=== PATIENT | male | born 1955 | race African-American/Black ===

== ENCOUNTER 2017-10-05 17:26 | Inpatient (IN) | payer OTHER ==
[2017-10-05 17:54] VITALS: BMI 19.3
--- NOTE | 2017-10-05 18:03 | HP ---
CIWA Score - CIWA Score Nausea/Vomitin Muscle Tremors: 3 Anxiety: 3 Agitation: 3 Paroxysmal Sweats: 2 Orientation: 0-Oriented Tacttile Disturbances: 2-Mild Itch/Numbness/Burn Auditory Disturbances: 2-Mild Harshness/Frighten Visual Disturbances: 0-None Headache: 2-Mild CIWA-Ar Total Score: 20 Admission ROS BHS - HPI Chief Complaint: I NEED HELP TO STOP DRINKING ALCOHOL AND COCAINE Allergies/Adverse Reactions: Allergies Allergy/AdvReac Type Severity Reaction Status Date / Time Fish Containing Products Allergy Severe Swelling Verified 10/05/17 18:40 morphine Allergy Severe Hives Verified 10/05/17 18:40 shellfish derived Allergy Severe Swelling Verified 10/05/17 18:40 SEAFOOD Allergy Severe Swelling Uncoded 10/05/17 18:40 History of Present Illness: THIS 62 YEARS OLD BLACK MALE PATIENT WITH ALCOHOL AND COCAINE DEPENDENCE, SEEKING DETOX,WITHDRAWAL SYMPTOM,LAST TREATMENT 03/19/16 TO 04/09/16 HAD CHEST PAIN SEEN AT [facility] TO COME FOR DETOX SYNCOPE ALCOHOL RELATED LAST 1 WEEK AGO IDDM ON LANTUS 25 UNITS HS HEPATITIS C WEIGHT LOSS 15 LBS DEPRESSION LONGEST PERIOD OF SOBRIETY Exam Limitations: No Limitations - Ebola screening Have you been sick,other than usual withdrawal symptoms: No - Review of Systems Constitutional: Loss of Appetite, Malaise, Night Sweats, Changes in sleep, Weakness, Unintentional Wgt. Loss EENT: reports: Tearing, Nose Congestion Respiratory: reports: Other (ON ALBUTEROL INHALER) Cardiac: reports: No Symptoms Reported GI: reports: Diarrhea, Nausea, Vomiting, Abdominal cramping : reports: No Symptoms Reported Musculoskeletal: reports: Back Pain, Muscle Pain Integumentary: reports: Dryness Neuro: reports: Headache, Tremors Endocrine: reports: No Symptoms Reported Hematology: reports: No Symptoms Reported Psychiatric: reports: No Sypmtoms Reported, Judgement Intact, Mood/Affect Appropiate, Orientated x3, Depressed (INSOMNIA) Patient History - Patient Medical History Hx Anemia: No Hx Asthma: Yes (ON ALBUTERIL INHALER) Hx Chronic Obstructive Pulmonary Disease (COPD): No Hx Cancer: No Hx Cardiac Disorders: No Hx Hypertension: No Hx Hypercholesterolemia: No HX Cerebrovascular Accident: No Hx Seizures: No Hx Dementia: No Hx Diabetes: Yes (IDDM) Hx Gastrointestinal Disorders: No Hx Liver Disease: Yes (HEP C) Hx Genitourinary Disorders: No Hx Sexually Transmitted Disorders: No Hx Renal Disease (ESRD): No Hx Thyroid Disease: No Hx Human Immunodeficiency Virus (HIV): No (NEGATIVE HX LAST UNKNOWN) Hx Hepatitis C: Yes (NOT YET TREATED) Hx Depression: Yes (depression 10 years ago) Hx Suicide Attempt: No Hx Bipolar Disorder: No Hx Schizophrenia: No Other Medical History: NO SUICIDAL,NO HOMICIDAL - Patient Surgical History Past Surgical History: No Hx Neurologic Surgery: No Hx Cataract Extraction: No Hx Cardiac Surgery: No Hx Lung Surgery: No Hx Breast Surgery: No Hx Breast Biopsy: No Hx Abdominal Surgery: No Hx Appendectomy: No Hx Cholecystectomy: No Hx Genitourinary Surgery: No Hx Section: No Hx Orthopedic Surgery: No Anesthesia Reaction: No - PPD History Documented Results: Negative w/o proof Implanted On Prior [facility] Admission?: Yes Date: 03/21/16 Results: TO BE DONE PPD to be Administered?: Yes - Smoking Cessation Smoking history: Current every day smoker Have you smoked in the past 12 months: Yes Aproximately how many cigarettes per day: 10 Hx Chewing Tobacco Use: No Initiated information on smoking cessation: Yes 'Breaking Loose' booklet given: 10/05/17 - Substance & Tx. History Hx Alcohol Use: Yes Hx Substance Use: Yes Substance Use Type: Alcohol, Cocaine Hx Substance Use Treatment: Yes ([facility]/19[facility]16 TO 04/08/16 REHAB) - Substances Abused Alcohol Route: Oral Frequency: Daily Amount used: 1PINT OF VODKA/6 PACKS OF 12 OZS OF BEER Age of first use: 19 Date of Last Use: 10/04/17 Cocaine Route: Smoking Frequency: 1-2 times per week Amount used: 400$ Age of first use: 27 Date of Last Use: 10/03/17 Family Disease History - Family Disease History Family Disease History: Diabetes: Father (), Mother (HTN-ALIVE), Heart Disease: Mother, Other: Mother Admission Physical Exam S - Vital Signs Vital Signs: Vital Signs - 24 hr 10/05/17 17:43 Temperature 96.8 F L Pulse Rate 74 Respiratory 18 Rate Blood Pressure 137/90 - Physical General Appearance: Yes: Moderate Distress, Tremorous, Irritable, Sweating, Anxious HEENTM: Yes: EDMAR, Pharynx Normal Respiratory: Yes: Lungs Clear, Normal Breath Sounds, No Respiratory Distress Neck: Yes: Within Normal Limits, Supple, Trachea in good position Breast: Yes: Within Normal Limits Cardiology: Yes: Within Normal Limits, Regular Rhythm, Regular Rate, S1, S2 Abdominal: Yes: Within Normal Limits, Normal Bowel Sounds, Non Tender, Flat, Soft Genitourinary: Yes: Within Normal Limits Back: Yes: Muscle Spasm, Other (HERNIATED DISC FOR 20 YEARS) Musculoskeletal: Yes: full range of Motion, Back pain, Muscle Pain Extremities: Yes: Within Normal Limits, Normal Range of Motion, Tremors Neurological: Yes: loan manager II-XII NML intact, Alert, Motor Strength 5/5, Normal Mood /Affect Integumentary: Yes: Dry Lymphatic: Yes: Within Normal Limits - Diagnostic (1) Alcohol dependence with uncomplicated withdrawal Current Visit: No Status: Chronic (2) Asthma Current Visit: No Status: Acute (3) Nicotine dependence Current Visit: No Status: Acute (4) Cocaine dependence, uncomplicated Current Visit: No Status: Chronic (5) Eczema Current Visit: No Status: Chronic Qualifiers: Eczema type: flexural Qualified Code(s): L20.82 - Flexural eczema (6) Weight loss Current Visit: Yes Status: Acute (7) IDDM (insulin dependent diabetes mellitus) Current Visit: Yes Status: Acute (8) History of chest pain Current Visit: Yes Status: Acute (9) Low back pain Current Visit: Yes Status: Acute Qualifiers: Chronicity: chronic (10) Lumbar herniated disc Current Visit: Yes Status: Acute Cleared for Admission [facility] - Detox or Rehab [facility] Level of Care: Medically Managed Detox Regimen/Protocol: Librium [facility] Breath Alcohol Content Breath Alcohol Content: 0 Urine Drug Screen - Results Drug Screen Negative: No Urine Drug Screen Results: PETE-Cocaine, BZO-Benzodiazepines, TCA-Tricyclic Antidepress
[2017-10-05] MEDS ORDERED: chlordiazePOXIDE HCL 25 MG CAPSULE PO PRN (18:23)
[2017-10-05] MEDS ORDERED: ACETAMINOPHEN 325 MG TABLET (FP) PO PRN (18:23)
[2017-10-05] MEDS ORDERED: MENTHOL/PHENOL 1 EACH UD MM PRN (18:23)
[2017-10-05] MEDS ORDERED: IBUPROFEN 400 MG TABLET (FP) PO PRN (18:23)
[2017-10-05] MEDS ORDERED: MAGNESIUM HYDROX 2400MG/30ML ORAL SUSPENSION 30 ML CUP PO PRN (18:23)
[2017-10-05] MEDS ORDERED: guaiFENesin/D-METHORPHAN HB 10 ML UNIT-DOSE CUPS PO PRN (18:23)
[2017-10-05] MEDS ORDERED: MAGNESIUM CITRATE 300 ML BOTTLE PO PRN (18:23)
[2017-10-05] MEDS ORDERED: hydrOXYzine PAMOATE 25 MG CAPSULE (FP) PO PRN (18:23)
[2017-10-05] MEDS ORDERED: MAG HYDROX/AL HYDROX/SIMETH 30 ML UNIT-DOSE CUP PO PRN (18:23)
[2017-10-05] MEDS ORDERED: P-EPHED 60MG/TRIPROLIDI 2.5MG TABLET PO PRN (18:23)
[2017-10-05] MEDS ORDERED: LOPERAMIDE HCL 2 MG CAPSULE PO PRN (18:23)
[2017-10-05] MEDS ORDERED: ALBUTEROL SO4 18 GM HFA INHALER IH PRN (18:27)
[2017-10-05] MEDS ORDERED: chlordiazePOXIDE HCL 25 MG CAPSULE PO ONE (19:00)
[2017-10-05] MEDS: THIAMINE HCL 100 MG TABLET (FP) PO SCH (22:29)
[2017-10-05] MEDS: MELATONIN 5 MG TABLETS PO PRN (22:29)
[2017-10-05] MEDS: INSULIN DETEMIR 100 UNITS/ML MDV SQ SCH (22:30)
[2017-10-05] MEDS: CYCLOBENZAPRINE HCL 10 MG TABLET (FP) PO PRN (22:30)
[2017-10-05] MEDS: chlordiazePOXIDE HCL 25 MG CAPSULE PO SCH (22:30)
[2017-10-06] MEDS: chlordiazePOXIDE HCL 25 MG CAPSULE PO SCH ×6 (06:44→22:16)
--- NOTE | 2017-10-06 07:32 | CONSULT ---
[facility] Psychiatric Consult - Data Date of interview: 10/06/17 Admission source: [facility] Identifying data: This is 62 years old AA single male, father of one, on SSI , homeless, with history of Bipolar disorder, history of psychiatric hospitalizations, is here seeking for detox from Alcohol, Cocaine and Nicotine. Repoprts most brecent Detox on 03/19/16 TO 04/09/16 Substance Abuse History: Urine Drug Screen Results: PETE-Cocaine, BZO- Benzodiazepines, TCA-Tricyclic Antidepress. Smoking history: Current every day smoker. Have you smoked in the past 12 months: Yes. Aproximately how many cigarettes per day: 10. Hx Chewing Tobacco Use: No. Initiated information on smoking cessation: Yes. 'Breaking Loose' booklet given: 10/05/17. - Substance & Tx. History. Hx Alcohol Use: Yes. Hx Substance Use: Yes. Substance Use Type : Alcohol, Cocaine. Hx Substance Use Treatment: Yes ([facility]16 TO 04/08/16 REHAB). - Substances Abused. Alcohol. Route: Oral. Frequency: Daily. Amount used: 1PINT OF VODKA/6 PACKS OF 12 OZS OF BEER. Age of first use: 19. Date of Last Use: 10/04/17. Cocaine. Route: Smoking. Frequency: 1-2 times per week. Amount used: 400$. Age of first use: 27. Date of Last Use: 10/03/17 Medical History: Patient rep[orts history of Weight loss, chest pain, DM-1, LBP , Eczema, Syncope history as well Psychiatric History: Patoent reports history of Depression and Bipolar Disorder , reports last psychiartric admission on about mopre then 10 years ago, reports no psychiatric medications taking since then, denies suicidal, homicidal history. Physical/Sexual Abuse/Trauma History: Denies Additional Comment: Urine Drug Screen Results: PETE-Cocaine, BZO-Benzodiazepines , TCA-Tricyclic Antidepress Mental Status Exam - Mental Status Exam Alert and Oriented to: Person Cognitive Function: Fair Patient Appearance: Unkempt Mood: Anxious Affect: Flat Patient Behavior: Guarded Speech Pattern: Appropriate Voice Loudness: Moderately Soft/Quiet Thought Process: Circumstantial Thought Disorder: Being Controlled Hallucinations: Denies Suicidal Ideation: Denies Homicidal Ideation: Denies Insight/Judgement: Fair Sleep: Difficulty falling asleep Appetite: Weight loss Muscle strength/Tone: Mild Hypotonicity Gait/Station: Shuffling Additional Comments: Detox Unit Care Protocol. Observation Psychiatric Findings - Problem List ([place] 1, 2,3) (1) Nicotine dependence Current Visit: Yes Status: Acute (2) Bipolar disorder Current Visit: Yes Status: Suspected (3) Substance induced mood disorder Current Visit: No Status: Chronic (4) Alcohol dependence with uncomplicated withdrawal Current Visit: No Status: Chronic (5) Cocaine dependence, uncomplicated Current Visit: No Status: Chronic - Initial Treatment Plan Initial Treatment Plan: Detox Unit Care Protocol. Observation
[2017-10-06 09:57] LABS: HEMATOCRIT 39.7 % (35.4-49); MCH 28.9 pg (25.7-33.7); MCHC 32.7 g/dl (32.0-35.9); MEAN CELL VOLUME 88.2 fl (80-96); MEAN PLT VOLUME 8.7 fl (7.5-11.1); PLATELET COUNT 211 K/MM3 (134-434); RBC 4.51 M/mm3 (4.00-5.60); RDW 14.1 % (11.9-15.9); WHITE BLOOD COUNT 3.3 K/mm3 (4.0-10.0)
[2017-10-06 10:31] LABS: CHLORIDE 108 mmol/L (98-107); SODIUM 142 mmol/L (136-145)
[2017-10-06 10:40] LABS: ALBUMIN 3.3 g/dl (3.4-5.0); ALK PHOS 92 U/L (45-117); ANION GAP 5 (8-16); BILIRUBIN,TOTAL 0.2 mg/dL (0.2-1.0); BLOOD UREA NITROGEN 20 mg/dL (7-18); CALCIUM 8.6 mg/dL (8.5-10.1); CO2 29 mmol/L (21-32); CREATININE 0.8 mg/dL (0.7-1.3); GLUCOSE,RANDOM 77 mg/dL (74-106); SGOT/AST 88 U/L (15-37); SGPT/ALT 74 U/L (12-78); TOT PROT 6.3 g/dl (6.4-8.2)
--- NOTE | 2017-10-06 10:48 | PN ---
[facility] CIWA - CIWA Score Nausea/Vomitin-Mild Nausea/No Vomiting Muscle Tremors: 4-Moderate,w/Arms Extend Anxiety: 4-Mod. Anxious/Guarded Agitation: 4-Moderately Restless Paroxysmal Sweats: 1-Minimal Palms Moist Orientation: 1-Uncertain about Date Tacttile Disturbances: 0-None Auditory Disturbances: 0-None Visual Disturbances: 0-None Headache: 1-Very Mild CIWA-Ar Total Score: 16 BHS Progress Note (SOAP) Subjective: sweat tremor difficulty sleeping at night, restlessness anxiety irritable Objective: 10/06/17 10:47 Vital Signs Temperature 96.8 F L 10/06/17 09:07 Pulse Rate 65 10/06/17 09:07 Respiratory Rate 20 10/06/17 09:07 Blood Pressure 127/64 10/06/17 09:07 O2 Sat by Pulse Oximetry (%) Laboratory Last Values WBC 3.3 K/mm3 (4.0-10.0) L 10/06/17 07:45 RBC 4.51 M/mm3 (4.00-5.60) 10/06/17 07:45 Hgb 13.0 GM/dL (11.7-16.9) 10/06/17 07:45 Hct 39.7 % (35.4-49) 10/06/17 07:45 MCV 88.2 fl (80-96) 10/06/17 07:45 MCH 28.9 pg (25.7-33.7) 10/06/17 07:45 MCHC 32.7 g/dl (32.0-35.9) 10/06/17 07:45 RDW 14.1 % (11.9-15.9) 10/06/17 07:45 Plt Count 211 K/MM3 (134-434) 10/06/17 07:45 MPV 8.7 fl (7.5-11.1) 10/06/17 07:45 Sodium 142 mmol/L (136-145) 10/06/17 07:45 Potassium 4.0 mmol/L (3.5-5.1) 10/06/17 07:45 Chloride 108 mmol/L (98-107) H 10/06/17 07:45 POC Glucometer 83 UNITS (80-120) 10/06/17 07:17 lab noted Assessment: 10/06/17 10:47 withdrawal sx Plan: continue detox
[2017-10-06] MEDS: LIDOCAINE 5% TOPICAL PATCH TP SCH (11:02)
[2017-10-06] MEDS: PRENATAL VITAMINS W/ FOLIC ACID TABLET (FP) PO SCH (11:02)
--- NOTE | 2017-10-06 11:28 | EKG ---
Test Reason : Blood Pressure : / mmHG Vent. Rate : 064 BPM Atrial Rate : 064 BPM P-R Int : 144 ms QRS Dur : 076 ms QT Int : 428 ms P-R-T Axes : 064 079 067 degrees QTc Int : 441 ms NORMAL SINUS RHYTHM NORMAL ECG NO PREVIOUS ECGS AVAILABLE Confirmed by MARIJA HEBERT MD ([id number]) on 10/06/2017 11:28:01 AM Referred By: Diego Guillermo Confirmed By:MARIJA HEBERT MD
[2017-10-06] MEDS: INSULIN DETEMIR 100 UNITS/ML MDV SQ SCH (21:39)
[2017-10-06] MEDS: CYCLOBENZAPRINE HCL 10 MG TABLET (FP) PO PRN (22:16)
[2017-10-06] MEDS: THIAMINE HCL 100 MG TABLET (FP) PO SCH (22:16)
[2017-10-06] MEDS: LIDOCAINE PATCH REMOVAL MC SCH ×2 (22:16)
[2017-10-06] MEDS: MELATONIN 5 MG TABLETS PO PRN (22:16)
[2017-10-07] MEDS: chlordiazePOXIDE HCL 25 MG CAPSULE PO SCH ×3 (06:13→18:03)
[2017-10-07] MEDS: PRENATAL VITAMINS W/ FOLIC ACID TABLET (FP) PO SCH (11:15)
[2017-10-07] MEDS: LIDOCAINE 5% TOPICAL PATCH TP SCH (11:15)
--- NOTE | 2017-10-07 13:08 | PN ---
S CIWA - CIWA Score Nausea/Vomitin Muscle Tremors: 3 Anxiety: 3 Agitation: 3 Paroxysmal Sweats: 1-Minimal Palms Moist Orientation: 0-Oriented Tacttile Disturbances: 1-Very Mild Itch/Numbness Auditory Disturbances: 1-Very Mild Visual Disturbances: 0-None Headache: 2-Mild CIWA-Ar Total Score: 17 BHS Progress Note (SOAP) Subjective: ALERT,IRRITABLE,ANXIOUS,INTERRUPTED SLEEP,TREMOR,PAIN IN THE BODY Objective: 10/07/17 13:07 Vital Signs Temperature 97.3 F L 10/07/17 10:00 Pulse Rate 68 10/07/17 10:00 Respiratory Rate 18 10/07/17 10:00 Blood Pressure 133/78 10/07/17 10:00 O2 Sat by Pulse Oximetry (%) Laboratory Last Values WBC 3.3 K/mm3 (4.0-10.0) L 10/06/17 07:45 RBC 4.51 M/mm3 (4.00-5.60) 10/06/17 07:45 Hgb 13.0 GM/dL (11.7-16.9) 10/06/17 07:45 Hct 39.7 % (35.4-49) 10/06/17 07:45 MCV 88.2 fl (80-96) 10/06/17 07:45 MCH 28.9 pg (25.7-33.7) 10/06/17 07:45 MCHC 32.7 g/dl (32.0-35.9) 10/06/17 07:45 RDW 14.1 % (11.9-15.9) 10/06/17 07:45 Plt Count 211 K/MM3 (134-434) 10/06/17 07:45 MPV 8.7 fl (7.5-11.1) 10/06/17 07:45 Sodium 142 mmol/L (136-145) 10/06/17 07:45 Potassium 4.0 mmol/L (3.5-5.1) 10/06/17 07:45 Chloride 108 mmol/L (98-107) H 10/06/17 07:45 Carbon Dioxide 29 mmol/L (21-32) 10/06/17 07:45 Anion Gap 5 (8-16) L 10/06/17 07:45 BUN 20 mg/dL (7-18) H D 10/06/17 07:45 Creatinine 0.8 mg/dL (0.7-1.3) D 10/06/17 07:45 Creat Clearance w eGFR > 60 (>60) 10/06/17 07:45 POC Glucometer 71 UNITS (80-120) 10/07/17 06:34 Random Glucose 77 mg/dL (74-106) D 10/06/17 07:45 Calcium 8.6 mg/dL (8.5-10.1) 10/06/17 07:45 Total Bilirubin 0.2 mg/dL (0.2-1.0) D 10/06/17 07:45 AST 88 U/L (15-37) H D 10/06/17 07:45 ALT 74 U/L (12-78) D 10/06/17 07:45 Alkaline Phosphatase 92 U/L (45-117) 10/06/17 07:45 Total Protein 6.3 g/dl (6.4-8.2) L 10/06/17 07:45 Albumin 3.3 g/dl (3.4-5.0) L 10/06/17 07:45 RPR Titer Nonreactive (NONREACTIVE) 10/06/17 07:45 Assessment: 10/07/17 13:08 WITHDRAWAL SYMPTOM Plan: CONTINUE DETOX
[2017-10-07] MEDS ORDERED: PATIENT'S OWN MEDICATION (NON-FORMULARY) (Insulin Glargine,Hum.Rec.Anlog 25 UNITS) SCJ SCH (22:00)
[2017-10-07] MEDS: chlordiazePOXIDE 5 MG CAPSULE PO SCH (22:07)
[2017-10-07] MEDS: THIAMINE HCL 100 MG TABLET (FP) PO SCH (22:07)
[2017-10-07] MEDS: LIDOCAINE PATCH REMOVAL MC SCH (22:08)
[2017-10-07] MEDS: INSULIN DETEMIR 100 UNITS/ML MDV SQ SCH (22:10)
[2017-10-08] MEDS: chlordiazePOXIDE 5 MG CAPSULE PO SCH ×3 (07:01→17:10)
[2017-10-08 10:03] LABS: URINE APPEARANCE CLEAR; URINE BILIRUBIN NEGATIVE (<2.0 mg/dL); URINE BLOOD NEGATIVE (NEGATIVE); URINE COLOR LTYELLOW; URINE GLUCOSE (UA) 3+ (NEGATIVE); URINE KETONE NEGATIVE (NEGATIVE); URINE LEUK ESTERASE NEGATIVE (NEGATIVE); URINE NITRITE NEGATIVE (NEGATIVE); URINE PROTEIN NEGATIVE (NEGATIVE); URINE UROBILINOGEN NEGATIVE mg/dL (0.2-1.0)
[2017-10-08] MEDS: PRENATAL VITAMINS W/ FOLIC ACID TABLET (FP) PO SCH (10:45)
[2017-10-08] MEDS: LIDOCAINE 5% TOPICAL PATCH TP SCH (10:45)
--- NOTE | 2017-10-08 12:16 | PN ---
S Progress Note (SOAP) Subjective: feeling better well rested no tremor tolerated food well and fluid well social with peers Objective: 10/08/17 12:16 Vital Signs Temperature 97.3 F L 10/08/17 09:35 Pulse Rate 67 10/08/17 09:35 Respiratory Rate 18 10/08/17 09:35 Blood Pressure 119/70 10/08/17 09:35 O2 Sat by Pulse Oximetry (%) Laboratory Last Values WBC 3.3 K/mm3 (4.0-10.0) L 10/06/17 07:45 RBC 4.51 M/mm3 (4.00-5.60) 10/06/17 07:45 Hgb 13.0 GM/dL (11.7-16.9) 10/06/17 07:45 Hct 39.7 % (35.4-49) 10/06/17 07:45 MCV 88.2 fl (80-96) 10/06/17 07:45 MCH 28.9 pg (25.7-33.7) 10/06/17 07:45 MCHC 32.7 g/dl (32.0-35.9) 10/06/17 07:45 RDW 14.1 % (11.9-15.9) 10/06/17 07:45 Plt Count 211 K/MM3 (134-434) 10/06/17 07:45 MPV 8.7 fl (7.5-11.1) 10/06/17 07:45 Sodium 142 mmol/L (136-145) 10/06/17 07:45 Potassium 4.0 mmol/L (3.5-5.1) 10/06/17 07:45 Chloride 108 mmol/L (98-107) H 10/06/17 07:45 Carbon Dioxide 29 mmol/L (21-32) 10/06/17 07:45 Anion Gap 5 (8-16) L 10/06/17 07:45 BUN 20 mg/dL (7-18) H D 10/06/17 07:45 Creatinine 0.8 mg/dL (0.7-1.3) D 10/06/17 07:45 Creat Clearance w eGFR > 60 (>60) 10/06/17 07:45 POC Glucometer 162 UNITS (80-120) 10/08/17 06:20 Random Glucose 77 mg/dL (74-106) D 10/06/17 07:45 Calcium 8.6 mg/dL (8.5-10.1) 10/06/17 07:45 Total Bilirubin 0.2 mg/dL (0.2-1.0) D 10/06/17 07:45 AST 88 U/L (15-37) H D 10/06/17 07:45 ALT 74 U/L (12-78) D 10/06/17 07:45 Alkaline Phosphatase 92 U/L (45-117) 10/06/17 07:45 Total Protein 6.3 g/dl (6.4-8.2) L 10/06/17 07:45 Albumin 3.3 g/dl (3.4-5.0) L 10/06/17 07:45 Urine Color Ltyellow 10/08/17 08:30 Urine Appearance Clear 10/08/17 08:30 Urine pH 6.0 (5.0-8.0) 10/08/17 08:30 Ur Specific [place] 1.013 (1.001-1.035) 10/08/17 08:30 Urine Protein Negative (NEGATIVE) 10/08/17 08:30 Urine Glucose (UA) 3+ (NEGATIVE) H 10/08/17 08:30 Urine Ketones Negative (NEGATIVE) 10/08/17 08:30 Urine Blood Negative (NEGATIVE) 10/08/17 08:30 Urine Nitrite Negative (NEGATIVE) 10/08/17 08:30 Urine Bilirubin Negative (<2.0 mg/dL) 10/08/17 08:30 Urine Urobilinogen Negative mg/dL (0.2-1.0) 10/08/17 08:30 Ur Leukocyte Esterase Negative (NEGATIVE) 10/08/17 08:30 RPR Titer Nonreactive (NONREACTIVE) 10/06/17 07:45 lab noted Assessment: 10/08/17 12:1 10/08/17 12:18 mild withdrawal sx Plan: medically supervised detox
[2017-10-08] MEDS ORDERED: INSULIN (NOVOLOG) ASPART 100 UNITS/ML 10ML VIAL ONE (17:07)
[2017-10-08] MEDS ORDERED: INSULIN SLIDING SCALE (NOVOLOG) 1 VIAL SQ SCH (17:27)
[2017-10-08] MEDS: INSULIN SLIDING SCALE (NOVOLOG) 1 VIAL SQ SCH (18:06)
[2017-10-08] MEDS ORDERED: COLLOIDAL OATMEAL 1 BAR EACH TP PRN (20:17)
[2017-10-08] MEDS: chlordiazePOXIDE HCL 10 MG CAPSULE PO SCH (23:00)
[2017-10-08] MEDS: LIDOCAINE PATCH REMOVAL MC SCH (23:00)
[2017-10-08] MEDS: INSULIN DETEMIR 100 UNITS/ML MDV SQ SCH (23:00)
[2017-10-08] MEDS: THIAMINE HCL 100 MG TABLET (FP) PO SCH (23:00)
[2017-10-09 06:20] VITALS: BP 119/78; PULSE 67; TEMP 97.9
[2017-10-09] MEDS: chlordiazePOXIDE HCL 10 MG CAPSULE PO SCH (06:47)
[2017-10-09] MEDS ORDERED: INSULIN SLIDING SCALE (NOVOLOG) 1 VIAL SQ SCH ×2 (07:00)
[2017-10-09] MEDS ORDERED: INSULIN (NOVOLOG) ASPART 100 UNITS/ML 10ML VIAL ONE (07:47)
[2017-10-09] MEDS: INSULIN SLIDING SCALE (NOVOLOG) 1 VIAL SQ SCH (07:54)
--- NOTE | 2017-10-09 08:32 | DS ---
[facility] Detox Discharge Summary Admission Date: 10/05/17 Discharge Date: 10/09/17 - History Present History: Alcohol Dependence, Cocaine Dependence Additional Comments: [facility]erry [facility] by [facility] for rehab at 10AM today Pertinent Past History: anxiety, depression and insomnia, nicotien dependence - Physical Exam Results Vital Signs: Vital Signs Temperature 97.9 F 10/09/17 06:19 Pulse Rate 67 10/09/17 06:19 Respiratory Rate 16 10/09/17 06:19 Blood Pressure 119/78 10/09/17 06:19 O2 Sat by Pulse Oximetry (%) Laboratory Tests 10/06/17 10/06/17 10/06/17 07:17 07:45 07:45 WBC 3.3 L RBC 4.51 Hgb 13.0 Hct 39.7 MCV 88.2 MCH 28.9 MCHC 32.7 RDW 14.1 Plt Count 211 MPV 8.7 Sodium 142 Potassium 4.0 Chloride 108 H Carbon Dioxide 29 Anion Gap 5 L BUN 20 H D Creatinine 0.8 D Creat Clearance w eGFR > 60 POC Glucometer 83 Random Glucose 77 D Calcium 8.6 Total Bilirubin 0.2 D AST 88 H D ALT 74 D Alkaline Phosphatase 92 Total Protein 6.3 L Albumin 3.3 L Urine Color Urine Appearance Urine pH Ur Specific [place] Urine Protein Urine Glucose (UA) Urine Ketones Urine Blood Urine Nitrite Urine Bilirubin Urine Urobilinogen Ur Leukocyte Esterase RPR Titer 10/06/17 10/06/17 10/07/17 07:45 21:37 06:34 WBC RBC Hgb Hct MCV MCH MCHC RDW Plt Count MPV Sodium Potassium Chloride Carbon Dioxide Anion Gap BUN Creatinine Creat Clearance w eGFR POC Glucometer 226 71 Random Glucose Calcium Total Bilirubin AST ALT Alkaline Phosphatase Total Protein Albumin Urine Color Urine Appearance Urine pH Ur Specific [place] Urine Protein Urine Glucose (UA) Urine Ketones Urine Blood Urine Nitrite Urine Bilirubin Urine Urobilinogen Ur Leukocyte Esterase RPR Titer Nonreactive 10/07/17 10/08/17 10/08/17 16:41 06:20 08:30 WBC RBC Hgb Hct MCV MCH MCHC RDW Plt Count MPV Sodium Potassium Chloride Carbon Dioxide Anion Gap BUN Creatinine Creat Clearance w eGFR POC Glucometer 264 162 Random Glucose Calcium Total Bilirubin AST ALT Alkaline Phosphatase Total Protein Albumin Urine Color Ltyellow Urine Appearance Clear Urine pH 6.0 Ur Specific [place] 1.013 Urine Protein Negative Urine Glucose (UA) 3+ H Urine Ketones Negative Urine Blood Negative Urine Nitrite Negative Urine Bilirubin Negative Urine Urobilinogen Negative Ur Leukocyte Esterase Negative RPR Titer 10/08/17 10/09/17 16:35 07:39 WBC RBC Hgb Hct MCV MCH MCHC RDW Plt Count MPV Sodium Potassium Chloride Carbon Dioxide Anion Gap BUN Creatinine Creat Clearance w eGFR POC Glucometer 394 202 Random Glucose Calcium Total Bilirubin AST ALT Alkaline Phosphatase Total Protein Albumin Urine Color Urine Appearance Urine pH Ur Specific [place] Urine Protein Urine Glucose (UA) Urine Ketones Urine Blood Urine Nitrite Urine Bilirubin Urine Urobilinogen Ur Leukocyte Esterase RPR Titer Pertinent Admission Physical Exam Findings: withdrawal sx - Treatment Hospital Course: Detox Protocol Followed, Detoxed Safely, Responded well, Discharged Condition Good, Rehab Referral Accepted Patient has Accepted a Rehab Referral to: Yes - Medication Discharge Medications: Ambulatory Orders Albuterol Sulfate Inhaler - [Ventolin HFA Inhaler -] 2 inh PO Q4H PRN #1 inhaler 10/08/17 Albuterol Sulfate Inhaler - [Ventolin HFA Inhaler -] 2 puff IH Q4H PRN #1 inhaler 10/09/17 Insulin Glargine,Hum.rec.anlog [Lantus Solostar PEN -] 25 units SCJ HS 30 Days ins 10/09/17 - Diagnosis (1) Lumbar herniated disc Current Visit: Yes Status: Acute (2) Nicotine dependence Current Visit: Yes Status: Acute (3) Bipolar disorder Current Visit: Yes Status: Suspected (4) Asthma Current Visit: No Status: Acute (5) Nicotine dependence Current Visit: No Status: Acute (6) Type 2 diabetes mellitus Current Visit: No Status: Acute Qualifiers: Diabetes mellitus complication status: without complication (7) Alcohol dependence with uncomplicated withdrawal Current Visit: No Status: Chronic (8) Cocaine dependence, uncomplicated Current Visit: No Status: Chronic (9) Eczema Current Visit: No Status: Chronic Qualifiers: Eczema type: flexural Qualified Code(s): L20.82 - Flexural eczema (10) Substance induced mood disorder Current Visit: No Status: Chronic - AMA Did Patient Leave Against Medical Advice: No
== END 2017-10-09 09:53 | disposition other institution (70) | DRG 774 ==
LOC: YASAS 17:26 → Y6N 18:38
PROVIDERS: ADMIT Internal Medicine; ATTEND Internal Medicine
PROC: HZ2ZZZZ Detoxification Services for Substance Abuse Treatment (ICD-10-PCS; principal; 2017-10-05)
DX: F10.230 Alcohol dependence with withdrawal, uncomplicated (principal); F14.20 Cocaine dependence, uncomplicated; F17.210 Nicotine dependence, cigarettes, uncomplicated; F41.9 Anxiety disorder, unspecified; F31.9 Bipolar disorder, unspecified; F19.24 Other psychoactive substance dependence with psychoactive substance-induced mood disorder; G47.00 Insomnia, unspecified; E11.9 Type 2 diabetes mellitus without complications; Z79.4 Long term (current) use of insulin; L20.82 Flexural eczema; M51.26 Other intervertebral disc displacement, lumbar region; J45.909 Unspecified asthma, uncomplicated; Z59.0 Homelessness
CPT/HCPCS: 36415; 80053; 81003; 82962; 85027; 86593; 93005; 93010

== ENCOUNTER 2018-03-18 13:05 | Inpatient (IN) | payer OTHER ==
[2018-03-18 14:57] VITALS: BMI 18.1
--- NOTE | 2018-03-18 20:26 | HP ---
CIWA Score - CIWA Score Nausea/Vomitin-Mild Nausea/No Vomiting Muscle Tremors: 4-Moderate,w/Arms Extend Anxiety: 4-Mod. Anxious/Guarded Agitation: 4-Moderately Restless Paroxysmal Sweats: No Perspiration Orientation: 1-Uncertain about Date Tacttile Disturbances: 0-None Auditory Disturbances: 0-None Visual Disturbances: 0-None Headache: 3-Moderate CIWA-Ar Total Score: 17 Admission ROS S - HPI Chief Complaint: C/O WITHDRAWAL SX'S. SEEKING DETOX FROM ALCOHOL Allergies/Adverse Reactions: Allergies Allergy/AdvReac Type Severity Reaction Status Date / Time Fish Containing Products Allergy Severe Swelling Verified 10/05/17 18:40 morphine Allergy Severe Hives Verified 10/05/17 18:40 shellfish derived Allergy Severe Swelling Verified 10/05/17 18:40 SEAFOOD Allergy Severe Swelling Uncoded 10/05/17 18:40 History of Present Illness: 62 Y.O. MALE WITH ALCOHOL/COCAINE DEPENDENCE HERE FOR DETOX. CLIENT IS KNOWN TO THIS PROGRAM. LAST HERE 10/05/2017-/10/09/2017. DENIES ANY INPATIENT TXMENT SINCE THEN. REPORTS LONGEST CLEAN TIME 3 YEARS. RELAPSED 2004. DENIES SOB, C.P., HX/ O SEIZURES, AVH, PAST/PRESENT SI/HI. REPORTS PREVIOUS HX/O BLACKOUTS. REQUESTING INAPTIENT REHAB AFTER DETOX PMHX: DM, ASTHMA, HEPC-NO TXMENT PSYCH: DEPRESSION/BIPOLAR Exam Limitations: No Limitations - Ebola screening Have you traveled outside of the country in the last 21 days: No Have you had contact with anyone from an Ebola affected area: No Have you been sick,other than usual withdrawal symptoms: No Do you have a fever: No - Review of Systems Constitutional: Loss of Appetite, Night Sweats, Changes in sleep, Unintentional Wgt. Loss EENT: reports: No Symptoms Reported Respiratory: reports: No Symptoms reported Cardiac: reports: No Symptoms Reported GI: reports: Nausea, Poor Appetite, Poor Fluid Intake : reports: No Symptoms Reported Musculoskeletal: reports: Back Pain (CHRONIC) Integumentary: reports: Rash (ECZEMA) Neuro: reports: No Symptoms reported Endocrine: reports: Unexplained Weight Loss, Other (DM) Hematology: reports: No Symptoms Reported Psychiatric: reports: Anxious, Depressed Other Systems: Reviewed and Negative Patient History - Patient Medical History Hx Anemia: No Hx Asthma: Yes (ON ALBUTERIL INHALER) Hx Chronic Obstructive Pulmonary Disease (COPD): No Hx Cancer: No Hx Cardiac Disorders: No Hx Congestive Heart Failure: No Hx Hypertension: No Hx Hypercholesterolemia: No Hx Pacemaker: No HX Cerebrovascular Accident: No Hx Seizures: No Hx Dementia: No Hx Diabetes: Yes (IDDM) Hx Gastrointestinal Disorders: No Hx Liver Disease: Yes (HEP C) Hx Genitourinary Disorders: No Hx Sexually Transmitted Disorders: No Hx Renal Disease (ESRD): No Hx Thyroid Disease: No Hx Human Immunodeficiency Virus (HIV): No Hx Hepatitis C: Yes (NOT YET TREATED) Hx Depression: Yes (depression 10 years ago) Hx Suicide Attempt: No Hx Bipolar Disorder: Yes Hx Schizophrenia: No Other Medical History: ECZEMA - Patient Surgical History Past Surgical History: No Hx Neurologic Surgery: No Hx Cataract Extraction: No Hx Cardiac Surgery: No Hx Lung Surgery: No Hx Breast Surgery: No Hx Breast Biopsy: No Hx Abdominal Surgery: No Hx Appendectomy: No Hx Cholecystectomy: No Hx Genitourinary Surgery: No Hx Section: No Hx Orthopedic Surgery: No Anesthesia Reaction: No - PPD History Previous Implant?: Yes Documented Results: Negative w/proof Implanted On Prior [facility] Admission?: Yes Date: 10/07/17 Results: 0MM PPD to be Administered?: No - Smoking Cessation Smoking history: Current every day smoker Have you smoked in the past 12 months: Yes Aproximately how many cigarettes per day: 10 Cigars Per Day: 0 Hx Chewing Tobacco Use: No Initiated information on smoking cessation: Yes 'Breaking Loose' booklet given: 03/18/18 - Substance & Tx. History Hx Alcohol Use: Yes Hx Substance Use: Yes Substance Use Type: Alcohol, Cocaine Hx Substance Use Treatment: Yes ([facility]) - Substances Abused Alcohol Route: Oral Frequency: Daily Amount used: LIQUOR-1 PINT, BEER- 1 SIX PACK Age of first use: 16 Date of Last Use: 03/17/18 Crack Route: Smoking Frequency: Daily Amount used: $50 WORTH Age of first use: 27 Date of Last Use: 03/15/18 Family Disease History - Family Disease History Family Disease History: Diabetes: Father (), Mother (HTN-ALIVE), Heart Disease: Mother, Other: Mother Admission Physical Exam BHS - Vital Signs Vital Signs: Vital Signs - 24 hr 03/18/18 14:47 Temperature 98.8 F Pulse Rate 61 Respiratory 20 Rate Blood Pressure 158/86 - Physical General Appearance: Yes: Appropriately Dressed, Thin, Tremorous, Irritable, Anxious HEENTM: Yes: EOMI, Normocephalic, Normal Voice, EDMAR, Pharynx Normal, Other ( DENTURES BOTH) Respiratory: Yes: Chest Non-Tender, Lungs Clear, Normal Breath Sounds, No Respiratory Distress, No Accessory Muscle Use Neck: Yes: No masses,lesions,Nodules, Supple, Trachea in good position Breast: Yes: Breast Exam Deferred Cardiology: Yes: Regular Rhythm, Regular Rate, S1, S2 Abdominal: Yes: Normal Bowel Sounds, Non Tender, Soft, Other (HYPOPIGMENTED PATCH NOTED BELOW UMBILICAL) Genitourinary: Yes: Other (NO C/O) Back: Yes: Normal Inspection Musculoskeletal: Yes: full range of Motion, Gait Steady Extremities: Yes: Normal Capillary Refill, Normal Range of Motion, Non-Tender, Tremors, Other (ECZEMA) Neurological: Yes: Alert, Motor Strength 5/5 Integumentary: Yes: Dry, Warm, Rash (ECZEMA) Lymphatic: Yes: Within Normal Limits - Diagnostic (1) Hepatitis C Current Visit: Yes Status: Chronic Qualifiers: Viral hepatitis chronicity: chronic (2) Asthma Current Visit: Yes Status: Chronic Qualifiers: Asthma severity: mild Asthma persistence: intermittent Asthma complication type: uncomplicated Qualified Code(s): J45.20 - Mild intermittent asthma, uncomplicated (3) Nicotine dependence Current Visit: Yes Status: Chronic Qualifiers: Nicotine product type: cigarettes Substance use status: uncomplicated Qualified Code(s): F17.210 - Nicotine dependence, cigarettes, uncomplicated (4) Type 2 diabetes mellitus Current Visit: Yes Status: Chronic Qualifiers: Diabetes mellitus complication status: without complication (5) Alcohol dependence with uncomplicated withdrawal Current Visit: Yes Status: Acute (6) Cocaine dependence, uncomplicated Current Visit: Yes Status: Chronic (7) Eczema Current Visit: Yes Status: Chronic Qualifiers: Eczema type: flexural Qualified Code(s): L20.82 - Flexural eczema (8) Substance induced mood disorder Current Visit: Yes Status: Chronic Cleared for Admission S - Detox or Rehab S Level of Care: Medically Managed Detox Regimen/Protocol: Librium Claeared for Rehab Admission: No S Breath Alcohol Content Breath Alcohol Content: 0 Urine Drug Screen - Results Drug Screen Negative: No
[2018-03-18] MEDS ORDERED: ALBUTEROL SO4 8 GM HFA INHALER IH PRN (20:29)
[2018-03-18] MEDS ORDERED: ALBUTEROL SO4 2.5/IPRATROPIUM 0.5 INH SOL 3 ML VIAL.NEB. NEB PRN (20:30)
[2018-03-18] MEDS ORDERED: guaiFENesin/D-METHORPHAN HB 10 ML UNIT-DOSE CUPS PO PRN (20:31)
[2018-03-18] MEDS ORDERED: LOPERAMIDE HCL 2 MG CAPSULE PO PRN (20:31)
[2018-03-18] MEDS ORDERED: MAGNESIUM HYDROX 2400MG/30ML ORAL SUSPENSION 30 ML CUP PO PRN (20:31)
[2018-03-18] MEDS ORDERED: P-EPHED 60MG/TRIPROLIDI 2.5MG TABLET PO PRN (20:31)
[2018-03-18] MEDS ORDERED: MENTHOL/PHENOL 1 EACH UD MM PRN (20:31)
[2018-03-18] MEDS ORDERED: NICOTINE POLACRILEX 2 MG GUM BC PRN (20:31)
[2018-03-18] MEDS ORDERED: chlordiazePOXIDE HCL 25 MG CAPSULE PO PRN (20:31)
[2018-03-18] MEDS ORDERED: MAGNESIUM CITRATE 300 ML BOTTLE PO PRN (20:31)
[2018-03-18] MEDS ORDERED: IBUPROFEN 400 MG TABLET (FP) PO PRN (20:31)
[2018-03-18] MEDS ORDERED: ACETAMINOPHEN 325 MG TABLET (FP) PO PRN (20:31)
[2018-03-18] MEDS ORDERED: MAG HYDROX/AL HYDROX/SIMETH 30 ML UNIT-DOSE CUP PO PRN (20:31)
[2018-03-18] MEDS ORDERED: hydrOXYzine PAMOATE 50 MG CAPSULE (FP) PO PRN (20:31)
[2018-03-18] MEDS ORDERED: MELATONIN 5 MG TABLETS PO PRN (22:00)
[2018-03-18] MEDS: THIAMINE HCL 100 MG TABLET (FP) PO SCH (22:51)
[2018-03-18] MEDS: chlordiazePOXIDE HCL 25 MG CAPSULE PO SCH (22:51)
[2018-03-18] MEDS: INSULIN (LEVEMIR) 100 UNITS/ML UNITS SQ SCH (22:55)
[2018-03-19 00:06] LABS: URINE APPEARANCE SLCLOUDY; URINE BILIRUBIN NEGATIVE (<2.0 mg/dL); URINE COLOR AMBER; URINE GLUCOSE (UA) NEGATIVE (NEGATIVE); URINE KETONE NEGATIVE (NEGATIVE); URINE LEUK ESTERASE NEGATIVE (NEGATIVE); URINE NITRITE NEGATIVE (NEGATIVE)
[2018-03-19 00:29] LABS: URINE PROTEIN 1+ (NEGATIVE)
[2018-03-19 00:56] LABS: URINE BACTERIA RARE /hpf (NONE SEEN); URINE HYALINE CAST 19 /lpf; URINE MUCUS MANY
[2018-03-19] MEDS: chlordiazePOXIDE HCL 25 MG CAPSULE PO SCH ×4 (06:40→22:39)
--- NOTE | 2018-03-19 09:56 | CONSULT ---
[facility] Psychiatric Consult - Data Date of interview: 03/19/18 Admission source: [facility] Identifying data: Patient is a 62 year old single male, father of two, unemployed, Domiciled (resides at [facility]), and is collecting SSI. This is one of multiple admissios for patient. Pt. admitted to for alcohol and cocaine dependence. Substance Abuse History: Smoking Cessation. Smoking history: Current every day smoker. Have you smoked in the past 12 months: Yes. Aproximately how many cigarettes per day: 10. Cigars Per Day: 0. Hx Chewing Tobacco Use: No. Initiated information on smoking cessation: Yes. 'Breaking Loose' booklet given : 03/18/18. - Substance & Tx. History. Hx Alcohol Use: Yes. Hx Substance Use : Yes. Substance Use Type: Alcohol, Cocaine. Hx Substance Use Treatment: Yes ( [facility]). - Substances Abused. Alcohol. Route: Oral. Frequency: Daily. Amount used: LIQUOR-1 PINT, BEER- 1 SIX PACK. Age of first use: 16. Date of Last Use: 03/17/18. Crack. Route: Smoking. Frequency: Daily. Amount used : $50 WORTH. Age of first use: 27. Date of Last Use: 03/15/18 Medical History: Asthma, diabetes, Hep C, eczema Psychiatric History: Patient reports one psychiatric hospitalization approximately 15 years ago at [facility] for depression. Unable to recall the medications he was prescribed but as per records patient reported accepting abilify. Pt denies outpatient care after discharge from [facility]. Pt. denies h/o suicide attempt. Physical/Sexual Abuse/Trauma History: denies. Mental Status Exam - Mental Status Exam Alert and Oriented to: Time, Place, Person Cognitive Function: Good Patient Appearance: Well Groomed Mood: Euthymic Affect: Mood Congruent Patient Behavior: Cooperative Speech Pattern: Appropriate Voice Loudness: Normal Thought Process: Intact, Goal Oriented Thought Disorder: Not Present Hallucinations: Denies Suicidal Ideation: Denies Homicidal Ideation: Denies Insight/Judgement: Poor Sleep: Fair Appetite: Fair Muscle strength/Tone: Normal Gait/Station: Other (Did not observe patient's gair.) Psychiatric Findings - Problem List ([place] 1, 2,3) (1) Alcohol dependence with uncomplicated withdrawal Current Visit: Yes Status: Acute (2) Cocaine dependence, uncomplicated Current Visit: Yes Status: Chronic (3) Substance induced mood disorder Current Visit: Yes Status: Suspected - Initial Treatment Plan Initial Treatment Plan: Psychoeducation provided. Detoxification in progress. Observation.
[2018-03-19] MEDS: PRENATAL VITAMINS W/ FOLIC ACID TABLET (FP) PO SCH (10:25)
[2018-03-19] MEDS: NICOTINE 21 MG/24 HOURS TOPICAL PATCH TD SCH (10:25)
[2018-03-19 10:38] LABS: HEMATOCRIT 39.3 % (35.4-49); HEMOGLOBIN 12.6 GM/dL (11.7-16.9); MCHC 32.1 g/dl (32.0-35.9); MEAN CELL VOLUME 87.2 fl (80-96); MEAN PLT VOLUME 8.8 fl (7.5-11.1); PLATELET COUNT 208 K/MM3 (134-434); RBC 4.51 M/mm3 (4.00-5.60); RDW 14.5 % (11.9-15.9); WHITE BLOOD COUNT 3.6 K/mm3 (4.0-10.0)
[2018-03-19 10:51] LABS: CALCIUM 8.8 mg/dL (8.5-10.1); CHLORIDE 108 mmol/L (98-107); POTASSIUM 3.8 mmol/L (3.5-5.1); SODIUM 145 mmol/L (136-145)
[2018-03-19 10:57] LABS: ALBUMIN 3.1 g/dl (3.4-5.0); ALK PHOS 99 U/L (45-117); ANION GAP 8 MMOL/L (8-16); BILIRUBIN,TOTAL 0.3 mg/dL (0.2-1.0); BLOOD UREA NITROGEN 21 mg/dL (7-18); CO2 29 mmol/L (21-32); CREATININE 0.9 mg/dL (0.7-1.3); GLUCOSE,RANDOM 125 mg/dL (74-106); SGOT/AST 43 U/L (15-37); SGPT/ALT 53 U/L (13-61); TOT PROT 6.2 g/dl (6.4-8.2)
--- NOTE | 2018-03-19 15:24 | PN ---
S CIWA - CIWA Score Nausea/Vomitin-No Nausea/No Vomiting Muscle Tremors: None Anxiety: 1-Mildly Anxious Agitation: 1-Slight > Activity Paroxysmal Sweats: No Perspiration Orientation: 0-Oriented Tacttile Disturbances: 0-None Auditory Disturbances: 0-None Visual Disturbances: 0-None Headache: 0-None Present CIWA-Ar Total Score: 2 BHS Progress Note (SOAP) Subjective: PATIENT PRESENTS WITH MILD ANXIETY AND RESTLESSNESS. Objective: 03/19/18 15:23 Vital Signs Temperature 97.3 F L 03/19/18 13:51 Pulse Rate 69 03/19/18 13:51 Respiratory Rate 18 03/19/18 13:51 Blood Pressure 123/73 03/19/18 13:51 O2 Sat by Pulse Oximetry (%) Laboratory Tests 03/18/18 03/18/18 03/18/18 17:12 20:29 Unknown WBC RBC Hgb Hct MCV MCH MCHC RDW Plt Count MPV Sodium Potassium Chloride Carbon Dioxide Anion Gap BUN Creatinine Creat Clearance w eGFR POC Glucometer 68 135 Random Glucose Calcium Total Bilirubin AST ALT Alkaline Phosphatase Total Protein Albumin Urine Color [place] Urine Appearance Slcloudy Urine pH 5.0 Ur Specific [place] 1.021 Urine Protein 1+ H Urine Glucose (UA) Negative Urine Ketones Negative Urine Blood Negative Urine Nitrite Negative Urine Bilirubin Negative Urine Urobilinogen 2.0 Ur Leukocyte Esterase Negative Urine WBC (Auto) 2 Urine RBC (Auto) <1 Urine Bacteria Rare Hyaline Casts 19 Urine Mucus Many RPR Titer HIV 1&2 Antibody Screen HIV P24 Antigen 03/19/18 03/19/18 03/19/18 06:40 07:00 07:00 WBC 3.6 L RBC 4.51 Hgb 12.6 Hct 39.3 MCV 87.2 MCH 28.0 MCHC 32.1 RDW 14.5 Plt Count 208 MPV 8.8 Sodium Potassium Chloride Carbon Dioxide Anion Gap BUN Creatinine Creat Clearance w eGFR POC Glucometer 135 Random Glucose Calcium Total Bilirubin AST ALT Alkaline Phosphatase Total Protein Albumin Urine Color Urine Appearance Urine pH Ur Specific [place] Urine Protein Urine Glucose (UA) Urine Ketones Urine Blood Urine Nitrite Urine Bilirubin Urine Urobilinogen Ur Leukocyte Esterase Urine WBC (Auto) Urine RBC (Auto) Urine Bacteria Hyaline Casts Urine Mucus RPR Titer HIV 1&2 Antibody Screen Negative HIV P24 Antigen Negative 03/19/18 03/19/18 07:00 07:00 WBC RBC Hgb Hct MCV MCH MCHC RDW Plt Count MPV Sodium 145 Potassium 3.8 Chloride 108 H Carbon Dioxide 29 Anion Gap 8 BUN 21 H Creatinine 0.9 Creat Clearance w eGFR > 60 POC Glucometer Random Glucose 125 H D Calcium 8.8 Total Bilirubin 0.3 AST 43 H ALT 53 Alkaline Phosphatase 99 Total Protein 6.2 L Albumin 3.1 L Urine Color Urine Appearance Urine pH Ur Specific [place] Urine Protein Urine Glucose (UA) Urine Ketones Urine Blood Urine Nitrite Urine Bilirubin Urine Urobilinogen Ur Leukocyte Esterase Urine WBC (Auto) Urine RBC (Auto) Urine Bacteria Hyaline Casts Urine Mucus RPR Titer Nonreactive HIV 1&2 Antibody Screen HIV P24 Antigen SKIN WARM AND DRY CAR S1 S2 RESP CTA BL EXT NO EDEMA Assessment: 03/19/18 15:23 WITHDRAWAL SYNDROME Plan: CONTINUE DETOX PER PROTOCOL
--- NOTE | 2018-03-19 15:41 | EKG ---
Test Reason : Blood Pressure : / mmHG Vent. Rate : 059 BPM Atrial Rate : 059 BPM P-R Int : 144 ms QRS Dur : 078 ms QT Int : 410 ms P-R-T Axes : 071 087 072 degrees QTc Int : 405 ms SINUS BRADYCARDIA OTHERWISE NORMAL ECG WHEN COMPARED WITH ECG OF 05-OCT-2017 19:34, NO SIGNIFICANT CHANGE WAS FOUND Confirmed by NAZ SOLO MD ([id number]) on 03/19/2018 3:41:07 PM Referred By: Confirmed By:NAZ SOLO MD
[2018-03-19] MEDS: THIAMINE HCL 100 MG TABLET (FP) PO SCH (22:39)
[2018-03-19] MEDS: INSULIN (LEVEMIR) 100 UNITS/ML UNITS SQ SCH (22:39)
[2018-03-20] MEDS: chlordiazePOXIDE HCL 25 MG CAPSULE PO SCH ×3 (06:39→17:43)
[2018-03-20] MEDS: PRENATAL VITAMINS W/ FOLIC ACID TABLET (FP) PO SCH (10:14)
[2018-03-20] MEDS: NICOTINE 21 MG/24 HOURS TOPICAL PATCH TD SCH (10:14)
--- NOTE | 2018-03-20 12:20 | PN ---
[facility] CIWA - CIWA Score Nausea/Vomitin-No Nausea/No Vomiting Muscle Tremors: 2 Anxiety: 2 Agitation: 2 Paroxysmal Sweats: 2 Orientation: 0-Oriented Tacttile Disturbances: 1-Very Mild Itch/Numbness Auditory Disturbances: 0-None Visual Disturbances: 0-None Headache: 0-None Present CIWA-Ar Total Score: 9 S Progress Note (SOAP) Subjective: interrupted sleep, anxious Objective: 03/20/18 12:20 Vital Signs Temperature 97.1 F L 03/20/18 09:08 Pulse Rate 56 L 03/20/18 09:08 Respiratory Rate 18 03/20/18 09:08 Blood Pressure 140/73 03/20/18 09:08 O2 Sat by Pulse Oximetry (%) Laboratory Last Values WBC 3.6 K/mm3 (4.0-10.0) L 03/19/18 07:00 RBC 4.51 M/mm3 (4.00-5.60) 03/19/18 07:00 Hgb 12.6 GM/dL (11.7-16.9) 03/19/18 07:00 Hct 39.3 % (35.4-49) 03/19/18 07:00 MCV 87.2 fl (80-96) 03/19/18 07:00 MCH 28.0 pg (25.7-33.7) 03/19/18 07:00 MCHC 32.1 g/dl (32.0-35.9) 03/19/18 07:00 RDW 14.5 % (11.9-15.9) 03/19/18 07:00 Plt Count 208 K/MM3 (134-434) 03/19/18 07:00 MPV 8.8 fl (7.5-11.1) 03/19/18 07:00 Sodium 145 mmol/L (136-145) 03/19/18 07:00 Potassium 3.8 mmol/L (3.5-5.1) 03/19/18 07:00 Chloride 108 mmol/L (98-107) H 03/19/18 07:00 Carbon Dioxide 29 mmol/L (21-32) 03/19/18 07:00 Anion Gap 8 MMOL/L (8-16) 03/19/18 07:00 BUN 21 mg/dL (7-18) H 03/19/18 07:00 Creatinine 0.9 mg/dL (0.7-1.3) 03/19/18 07:00 Creat Clearance w eGFR > 60 (>60) 03/19/18 07:00 POC Glucometer 100 UNITS (80-120) 03/20/18 11:21 Random Glucose 125 mg/dL (74-106) H D 03/19/18 07:00 Calcium 8.8 mg/dL (8.5-10.1) 03/19/18 07:00 Total Bilirubin 0.3 mg/dL (0.2-1.0) 03/19/18 07:00 AST 43 U/L (15-37) H 03/19/18 07:00 ALT 53 U/L (13-61) 03/19/18 07:00 Alkaline Phosphatase 99 U/L (45-117) 03/19/18 07:00 Total Protein 6.2 g/dl (6.4-8.2) L 03/19/18 07:00 Albumin 3.1 g/dl (3.4-5.0) L 03/19/18 07:00 Urine Color [place] 03/18/18 Unknown Urine Appearance Slcloudy 03/18/18 Unknown Urine pH 5.0 (5.0-8.0) 03/18/18 Unknown Ur Specific [place] 1.021 (1.001-1.035) 03/18/18 Unknown Urine Protein 1+ (NEGATIVE) H 03/18/18 Unknown Urine Glucose (UA) Negative (NEGATIVE) 03/18/18 Unknown Urine Ketones Negative (NEGATIVE) 03/18/18 Unknown Urine Blood Negative (NEGATIVE) 03/18/18 Unknown Urine Nitrite Negative (NEGATIVE) 03/18/18 Unknown Urine Bilirubin Negative (<2.0 mg/dL) 03/18/18 Unknown Urine Urobilinogen 2.0 mg/dL (0.2-1.0) 03/18/18 Unknown Ur Leukocyte Esterase Negative (NEGATIVE) 03/18/18 Unknown Urine WBC (Auto) 2 /hpf (3-5) 03/18/18 Unknown Urine RBC (Auto) <1 /hpf (0-3) 03/18/18 Unknown Urine Bacteria Rare /hpf (NONE SEEN) 03/18/18 Unknown Hyaline Casts 19 /lpf 03/18/18 Unknown Urine Mucus Many 03/18/18 Unknown RPR Titer Nonreactive (NONREACTIVE) 03/19/18 07:00 HIV 1&2 Antibody Screen Negative 03/19/18 07:00 HIV P24 Antigen Negative 03/19/18 07:00 Aox3 no distress no adventitious breath sounds ambulating unti independently Assessment: 03/20/18 12:20 withdrawal sx Plan: increase po fluids continue to monitor
[2018-03-20] MEDS: INSULIN (LEVEMIR) 100 UNITS/ML UNITS SQ SCH (21:50)
[2018-03-20] MEDS: THIAMINE HCL 100 MG TABLET (FP) PO SCH (21:51)
[2018-03-20] MEDS: chlordiazePOXIDE 5 MG CAPSULE PO SCH (22:25)
[2018-03-21] MEDS: chlordiazePOXIDE 5 MG CAPSULE PO SCH ×3 (06:21→20:21)
[2018-03-21] MEDS: PRENATAL VITAMINS W/ FOLIC ACID TABLET (FP) PO SCH (10:25)
[2018-03-21] MEDS: NICOTINE 21 MG/24 HOURS TOPICAL PATCH TD SCH (10:25)
--- NOTE | 2018-03-21 14:23 | PN ---
BHS Progress Note (SOAP) Subjective: patient reports doing well w/ meds ,denies symptoms at this time Objective: 03/21/18 14:22 aaox 3 , nad CBC, BMP 03/19/18 07:00 03/19/18 07:00 advised pt to f/up w/ pcp re : abnormal labs Assessment: 03/21/18 14:23 alcohol dependence Plan: continue taper
[2018-03-21] MEDS: INSULIN (LEVEMIR) 100 UNITS/ML UNITS SQ SCH (21:44)
[2018-03-21] MEDS: THIAMINE HCL 100 MG TABLET (FP) PO SCH (23:10)
[2018-03-21] MEDS: chlordiazePOXIDE HCL 10 MG CAPSULE PO SCH (23:10)
[2018-03-22] MEDS: chlordiazePOXIDE HCL 10 MG CAPSULE PO SCH ×2 (06:08→11:16)
[2018-03-22 09:44] VITALS: BP 156/81; PULSE 60; TEMP 96.8
[2018-03-22] MEDS: NICOTINE 21 MG/24 HOURS TOPICAL PATCH TD SCH (10:18)
[2018-03-22] MEDS: PRENATAL VITAMINS W/ FOLIC ACID TABLET (FP) PO SCH (10:18)
--- NOTE | 2018-03-22 18:12 | DS ---
[facility] Detox Discharge Summary Admission Date: 03/18/18 Discharge Date: 03/22/18 - History Present History: Alcohol Dependence, Cocaine Dependence Pertinent Past History: Asthma Eczema DMT2 Hepatitis C - Physical Exam Results Vital Signs: Vital Signs Temperature 96.8 F L 03/22/18 09:43 Pulse Rate 60 03/22/18 09:43 Respiratory Rate 18 03/22/18 09:43 Blood Pressure 156/81 03/22/18 09:43 O2 Sat by Pulse Oximetry (%) Pertinent Admission Physical Exam Findings: Withdrawal symptoms Laboratory Tests 03/18/18 03/18/18 03/18/18 17:12 20:29 Unknown WBC RBC Hgb Hct MCV MCH MCHC RDW Plt Count MPV Sodium Potassium Chloride Carbon Dioxide Anion Gap BUN Creatinine Creat Clearance w eGFR POC Glucometer 68 135 Random Glucose Calcium Total Bilirubin AST ALT Alkaline Phosphatase Total Protein Albumin Urine Color [place] Urine Appearance Slcloudy Urine pH 5.0 Ur Specific [place] 1.021 Urine Protein 1+ H Urine Glucose (UA) Negative Urine Ketones Negative Urine Blood Negative Urine Nitrite Negative Urine Bilirubin Negative Urine Urobilinogen 2.0 Ur Leukocyte Esterase Negative Urine WBC (Auto) 2 Urine RBC (Auto) <1 Urine Bacteria Rare Hyaline Casts 19 Urine Mucus Many RPR Titer HIV 1&2 Antibody Screen HIV P24 Antigen 03/19/18 03/19/18 03/19/18 06:40 07:00 07:00 WBC 3.6 L RBC 4.51 Hgb 12.6 Hct 39.3 MCV 87.2 MCH 28.0 MCHC 32.1 RDW 14.5 Plt Count 208 MPV 8.8 Sodium Potassium Chloride Carbon Dioxide Anion Gap BUN Creatinine Creat Clearance w eGFR POC Glucometer 135 Random Glucose Calcium Total Bilirubin AST ALT Alkaline Phosphatase Total Protein Albumin Urine Color Urine Appearance Urine pH Ur Specific [place] Urine Protein Urine Glucose (UA) Urine Ketones Urine Blood Urine Nitrite Urine Bilirubin Urine Urobilinogen Ur Leukocyte Esterase Urine WBC (Auto) Urine RBC (Auto) Urine Bacteria Hyaline Casts Urine Mucus RPR Titer HIV 1&2 Antibody Screen Negative HIV P24 Antigen Negative 03/19/18 03/19/18 03/19/18 07:00 07:00 11:29 WBC RBC Hgb Hct MCV MCH MCHC RDW Plt Count MPV Sodium 145 Potassium 3.8 Chloride 108 H Carbon Dioxide 29 Anion Gap 8 BUN 21 H Creatinine 0.9 Creat Clearance w eGFR > 60 POC Glucometer 200 Random Glucose 125 H D Calcium 8.8 Total Bilirubin 0.3 AST 43 H ALT 53 Alkaline Phosphatase 99 Total Protein 6.2 L Albumin 3.1 L Urine Color Urine Appearance Urine pH Ur Specific [place] Urine Protein Urine Glucose (UA) Urine Ketones Urine Blood Urine Nitrite Urine Bilirubin Urine Urobilinogen Ur Leukocyte Esterase Urine WBC (Auto) Urine RBC (Auto) Urine Bacteria Hyaline Casts Urine Mucus RPR Titer Nonreactive HIV 1&2 Antibody Screen HIV P24 Antigen 03/19/18 03/19/18 03/19/18 11:31 16:24 21:30 WBC RBC Hgb Hct MCV MCH MCHC RDW Plt Count MPV Sodium Potassium Chloride Carbon Dioxide Anion Gap BUN Creatinine Creat Clearance w eGFR POC Glucometer 184 159 152 Random Glucose Calcium Total Bilirubin AST ALT Alkaline Phosphatase Total Protein Albumin Urine Color Urine Appearance Urine pH Ur Specific [place] Urine Protein Urine Glucose (UA) Urine Ketones Urine Blood Urine Nitrite Urine Bilirubin Urine Urobilinogen Ur Leukocyte Esterase Urine WBC (Auto) Urine RBC (Auto) Urine Bacteria Hyaline Casts Urine Mucus RPR Titer HIV 1&2 Antibody Screen HIV P24 Antigen 03/20/18 03/20/18 03/20/18 11:21 16:24 21:47 WBC RBC Hgb Hct MCV MCH MCHC RDW Plt Count MPV Sodium Potassium Chloride Carbon Dioxide Anion Gap BUN Creatinine Creat Clearance w eGFR POC Glucometer 100 204 199 Random Glucose Calcium Total Bilirubin AST ALT Alkaline Phosphatase Total Protein Albumin Urine Color Urine Appearance Urine pH Ur Specific [place] Urine Protein Urine Glucose (UA) Urine Ketones Urine Blood Urine Nitrite Urine Bilirubin Urine Urobilinogen Ur Leukocyte Esterase Urine WBC (Auto) Urine RBC (Auto) Urine Bacteria Hyaline Casts Urine Mucus RPR Titer HIV 1&2 Antibody Screen HIV P24 Antigen 03/21/18 03/21/18 03/22/18 06:19 21:26 06:11 WBC RBC Hgb Hct MCV MCH MCHC RDW Plt Count MPV Sodium Potassium Chloride Carbon Dioxide Anion Gap BUN Creatinine Creat Clearance w eGFR POC Glucometer 105 190 102 Random Glucose Calcium Total Bilirubin AST ALT Alkaline Phosphatase Total Protein Albumin Urine Color Urine Appearance Urine pH Ur Specific [place] Urine Protein Urine Glucose (UA) Urine Ketones Urine Blood Urine Nitrite Urine Bilirubin Urine Urobilinogen Ur Leukocyte Esterase Urine WBC (Auto) Urine RBC (Auto) Urine Bacteria Hyaline Casts Urine Mucus RPR Titer HIV 1&2 Antibody Screen HIV P24 Antigen Labs reviewed: abnormal UA - Treatment Hospital Course: Detox Protocol Followed, Detoxed Safely, Responded well, Discharged Condition Good, Rehab Referral Accepted - Medication Discharge Medications: Ambulatory Orders Albuterol Sulfate Inhaler - [Ventolin HFA Inhaler -] 2 inh PO Q4H PRN #1 inhaler 10/08/17 Albuterol Sulfate Inhaler - [Ventolin HFA Inhaler -] 2 puff IH Q4H PRN #1 inhaler 10/09/17 Insulin Glargine,Hum.rec.anlog [Lantus Solostar PEN -] 25 units SCJ HS 30 Days ins 10/09/17 - Diagnosis (1) Type 2 diabetes mellitus with hyperglycemia Status: Chronic (2) Alcohol dependence with uncomplicated withdrawal Status: Acute (3) Nicotine dependence Status: Chronic (4) Asthma Status: Chronic Qualifiers: Asthma severity: mild Asthma persistence: intermittent Asthma complication type: uncomplicated Qualified Code(s): J45.20 - Mild intermittent asthma, uncomplicated (5) Cocaine dependence, uncomplicated Status: Chronic (6) Eczema Status: Chronic Qualifiers: Eczema type: flexural Qualified Code(s): L20.82 - Flexural eczema (7) Hepatitis C Status: Chronic Qualifiers: Viral hepatitis chronicity: chronic - AMA Did Patient Leave Against Medical Advice: No (F/U with your PCP after rehab)
== END 2018-03-22 12:06 | disposition other institution (70) | DRG 774 ==
LOC: YASAS 13:05 → Y3N 21:49
PROC: HZ2ZZZZ Detoxification Services for Substance Abuse Treatment (ICD-10-PCS; principal; 2018-03-18)
DX: F10.230 Alcohol dependence with withdrawal, uncomplicated (principal); F14.20 Cocaine dependence, uncomplicated; F17.210 Nicotine dependence, cigarettes, uncomplicated; F31.9 Bipolar disorder, unspecified; F19.24 Other psychoactive substance dependence with psychoactive substance-induced mood disorder; E11.65 Type 2 diabetes mellitus with hyperglycemia; Z79.4 Long term (current) use of insulin; J45.20 Mild intermittent asthma, uncomplicated; L20.82 Flexural eczema; B18.2 Chronic viral hepatitis C; M51.26 Other intervertebral disc displacement, lumbar region; Z88.8 Allergy status to other drugs, medicaments and biological substances; Z91.013 Allergy to seafood; Z59.0 Homelessness
CPT/HCPCS: 36415; 80053; 81003; 81015; 82962; 85027; 86593; 87389; 93005; 93010

== ENCOUNTER 2018-03-22 12:05 | Inpatient (IN) | payer OTHER ==
[2018-03-22] MEDS ORDERED: NICOTINE POLACRILEX 2 MG GUM BUC PRN (16:32)
[2018-03-22] MEDS ORDERED: MAG HYDROX/AL HYDROX/SIMETH 30 ML UNIT-DOSE CUP PO PRN (16:32)
[2018-03-22] MEDS ORDERED: guaiFENesin/D-METHORPHAN HB 10 ML UNIT-DOSE CUPS PO PRN (16:32)
[2018-03-22] MEDS ORDERED: P-EPHED 60MG/TRIPROLIDI 2.5MG TABLET PO PRN (16:32)
[2018-03-22] MEDS ORDERED: MAGNESIUM HYDROX 2400MG/30ML ORAL SUSPENSION 30 ML CUP PO PRN (16:32)
[2018-03-22] MEDS ORDERED: MAGNESIUM CITRATE 300 ML BOTTLE PO PRN (16:32)
[2018-03-22] MEDS ORDERED: IBUPROFEN 400 MG TABLET (FP) PO PRN (16:32)
[2018-03-22] MEDS ORDERED: hydrOXYzine PAMOATE 50 MG CAPSULE (FP) PO PRN (16:32)
[2018-03-22] MEDS ORDERED: ACETAMINOPHEN 325 MG TABLET (FP) PO PRN (16:32)
[2018-03-22] MEDS ORDERED: MENTHOL/PHENOL 1 EACH UD MM PRN (16:32)
[2018-03-22] MEDS ORDERED: LOPERAMIDE HCL 2 MG CAPSULE PO PRN (16:32)
[2018-03-22] MEDS ORDERED: ALBUTEROL SO4 8 GM HFA INHALER IH PRN (16:33)
[2018-03-22] MEDS: THIAMINE HCL 100 MG TABLET (FP) PO SCH (21:18)
[2018-03-22] MEDS: INSULIN (LEVEMIR) 100 UNITS/ML UNITS SQ SCH (21:18)
--- NOTE | 2018-03-23 07:01 | HP ---
Psychiatrist Admission - Data Date of interview: 03/23/18 Admission source: 3N Identifying data: This is the third [facility] admission for this 62 years old single Black male, father of 2 children, unemployed on SSI, homeless Medical History: Significant for history of bronchial asthma, insulin- dependent diabetes mellitus, eczema, low back pain and hepatitis C. Smokes 10 cigarettes daily Psychiatric History: Reports that he was diagnosed with Bipolar Disorder approximately 12 years ago. Reports 2 previous psychiatric admissions both to [facility]. Reports that most recent one was approximately 10 years ago. Denies receiving psychiatric OPD services nor taking psychotropic medication. Claims that he has not taking medication for years. Only remembers Seroquel as one medication he was on. Denies history of previous suicidal attempt. At present, denies experiencing psychotic, manic or depressive symptoms , S/H ideations. However, reports feeling anxious and sleeping poorly. Requests to be ordered Benadryl Physical/Sexual Abuse/Trauma History: Denies history of emotional, physical or sexual abuse as well as DV relationship. No service Additional Comment: Reports multiple previous misdemeanor arrests on chrges of drinking in public, trespassing etc Vital Signs: Vital Signs - 24 hr 03/22/18 03/23/18 03/23/18 14:01 00:30 03:30 Pulse Rate 57 L Respiratory 18 16 16 Rate Blood Pressure 151/81 Allergies/Adverse Reactions: Allergies Allergy/AdvReac Type Severity Reaction Status Date / Time Fish Containing Products Allergy Severe Swelling Verified 10/05/17 18:40 morphine Allergy Severe Hives Verified 10/05/17 18:40 shellfish derived Allergy Severe Swelling Verified 10/05/17 18:40 SEAFOOD Allergy Severe Swelling Uncoded 10/05/17 18:40 Date of last physical exam: 03/18/18 Concur with the findings of this exam: Yes - Substance Abuse/Tx History Hx Alcohol Use: Yes Hx Substance Use: Yes Substance Use Type: Alcohol (Started drinking alcohol at age 16, consumes one pint of liquor & a 6pk of beer daily. Last drank on 03/17/18), Cocaine (Started smoking crack cocaine at age 27, consumes $50 worth daily. Last smoked on 03/15/18 ) Hx Substance Use Treatment: Yes (2 previous inpt detox & 2 inpt rehab admissions @ [facility]) Mental Status Exam - Mental Status Exam Alert and Oriented to: Time, Place, Person Cognitive Function: Fair Patient Appearance: Well Groomed Mood: Anxious Affect: Appropriate Patient Behavior: Cooperative Speech Pattern: Clear Voice Loudness: Normal Thought Process: Intact, Goal Oriented Hallucinations: Denies Suicidal Ideation: Denies Homicidal Ideation: Denies Insight/Judgement: Fair Sleep: Poorly Appetite: Good Muscle strength/Tone: Normal Gait/Station: Normal Psychiatric Findings - Problem List ([place] 1, 2,3) (1) Alcohol dependence Current Visit: Yes Status: Acute (2) Cocaine dependence Current Visit: Yes Status: Acute (3) Bipolar disorder Current Visit: Yes Status: Chronic (4) Substance-induced anxiety disorder Current Visit: Yes Status: Acute (5) Substance-induced sleep disorder Current Visit: Yes Status: Acute (6) Lumbar herniated disc Current Visit: No Status: Chronic (7) Asthma Current Visit: No Status: Chronic Qualifiers: Asthma severity: mild Asthma persistence: intermittent Asthma complication type: uncomplicated Qualified Code(s): J45.20 - Mild intermittent asthma, uncomplicated (8) Eczema Current Visit: No Status: Chronic Qualifiers: Eczema type: flexural Qualified Code(s): L20.82 - Flexural eczema (9) Hepatitis C Current Visit: No Status: Chronic Qualifiers: Viral hepatitis chronicity: chronic (10) Type 2 diabetes mellitus with hyperglycemia Current Visit: No Status: Chronic (11) Nicotine dependence Current Visit: No Status: Chronic - Initial Treatment Plan Initial Treatment Plan: 1) Start Benadryl 50 mg po HS. 2) Monitor progress
[2018-03-23] MEDS: PRENATAL VITAMINS W/ FOLIC ACID TABLET (FP) PO SCH (10:10)
[2018-03-23] MEDS: NICOTINE 21 MG/24 HOURS TOPICAL PATCH TD SCH (10:10)
[2018-03-23] MEDS ORDERED: PT OWN MED DRAWER 7, Y5N ONE ×2 (10:29→21:30)
[2018-03-23] MEDS: THIAMINE HCL 100 MG TABLET (FP) PO SCH (21:29)
[2018-03-23] MEDS: INSULIN (LEVEMIR) 100 UNITS/ML UNITS SQ SCH (21:29)
[2018-03-23] MEDS: diphenhydrAMINE HCL 50 MG CAPSULE PO PRN (21:31)
[2018-03-24] MEDS: PRENATAL VITAMINS W/ FOLIC ACID TABLET (FP) PO SCH (10:11)
[2018-03-24] MEDS: NICOTINE 21 MG/24 HOURS TOPICAL PATCH TD SCH (10:12)
[2018-03-24] MEDS: THIAMINE HCL 100 MG TABLET (FP) PO SCH (21:11)
[2018-03-24] MEDS: diphenhydrAMINE HCL 50 MG CAPSULE PO PRN (21:11)
[2018-03-24] MEDS: INSULIN (LEVEMIR) 100 UNITS/ML UNITS SQ SCH (21:13)
[2018-03-25] MEDS: NICOTINE 21 MG/24 HOURS TOPICAL PATCH TD SCH (10:19)
[2018-03-25] MEDS: PRENATAL VITAMINS W/ FOLIC ACID TABLET (FP) PO SCH (10:19)
[2018-03-25] MEDS: INSULIN (LEVEMIR) 100 UNITS/ML UNITS SQ SCH (21:20)
[2018-03-25] MEDS: THIAMINE HCL 100 MG TABLET (FP) PO SCH (21:22)
[2018-03-25] MEDS: diphenhydrAMINE HCL 50 MG CAPSULE PO PRN (21:22)
[2018-03-26] MEDS: PRENATAL VITAMINS W/ FOLIC ACID TABLET (FP) PO SCH (09:37)
[2018-03-26] MEDS: NICOTINE 21 MG/24 HOURS TOPICAL PATCH TD SCH (09:38)
[2018-03-26] MEDS: diphenhydrAMINE HCL 50 MG CAPSULE PO PRN (21:14)
[2018-03-26] MEDS: MELATONIN 5 MG TABLETS PO PRN (21:14)
[2018-03-26] MEDS: INSULIN (LEVEMIR) 100 UNITS/ML UNITS SQ SCH (21:16)
[2018-03-26] MEDS: THIAMINE HCL 100 MG TABLET (FP) PO SCH (21:16)
[2018-03-26] MEDS ORDERED: PT OWN MED DRAWER 7, Y5N ONE (22:05)
[2018-03-27] MEDS: PRENATAL VITAMINS W/ FOLIC ACID TABLET (FP) PO SCH (10:14)
[2018-03-27] MEDS: NICOTINE 21 MG/24 HOURS TOPICAL PATCH TD SCH (10:14)
[2018-03-27] MEDS ORDERED: PT OWN MED DRAWER 7, Y5N ONE (15:59)
[2018-03-27] MEDS: MELATONIN 5 MG TABLETS PO PRN (21:45)
[2018-03-27] MEDS: diphenhydrAMINE HCL 50 MG CAPSULE PO PRN (21:45)
[2018-03-27] MEDS: THIAMINE HCL 100 MG TABLET (FP) PO SCH (21:45)
[2018-03-27] MEDS: INSULIN (LEVEMIR) 100 UNITS/ML UNITS SQ SCH (21:46)
[2018-03-27] MEDS: FLUOCINONIDE 0.05% CREAM (60 GM TUBE) TP SCH (21:46)
--- NOTE | 2018-03-27 23:32 | HP ---
[facility] Rehab Assess/Revision - Admission History Admitted to Rehab from: [facility] Date of Admission to Rehab: 03/22/2018 - Vital signs Vital Signs: Vital Signs Period Temp Pulse Resp BP Sys/Henriquez Pulse Ox Last 24 Hr 97.6 F 63 16-18 137/80 - Findings Detox History & Physical reviewed: Yes Concur with findings: Yes Inpatient Rehab Admission - Initial Determination Are CD services needed?: Yes Free of communicable disease: Yes Not in need of hospitalization: Yes - Rehab Admission Criteria Previous failed treatment: Yes Poor recovery environment: Yes Comorbidities: Yes Lacks judgement: Yes Patient is meeting Inpatient Rehab admission criteria:: Yes
[2018-03-28] MEDS ORDERED: PT OWN MED DRAWER 7, Y5N ONE (09:02)
[2018-03-28] MEDS: FLUOCINONIDE 0.05% CREAM (60 GM TUBE) TP SCH ×2 (09:51→21:40)
[2018-03-28] MEDS: NICOTINE 21 MG/24 HOURS TOPICAL PATCH TD SCH (09:51)
[2018-03-28] MEDS: PRENATAL VITAMINS W/ FOLIC ACID TABLET (FP) PO SCH (09:51)
[2018-03-28] MEDS: INSULIN (LEVEMIR) 100 UNITS/ML UNITS SQ SCH (21:40)
[2018-03-28] MEDS: THIAMINE HCL 100 MG TABLET (FP) PO SCH (21:41)
[2018-03-28] MEDS: MELATONIN 5 MG TABLETS PO PRN (21:41)
[2018-03-28] MEDS: diphenhydrAMINE HCL 50 MG CAPSULE PO PRN (21:43)
[2018-03-29] MEDS: PRENATAL VITAMINS W/ FOLIC ACID TABLET (FP) PO SCH (09:43)
[2018-03-29] MEDS: NICOTINE 21 MG/24 HOURS TOPICAL PATCH TD SCH (09:43)
[2018-03-29] MEDS: FLUOCINONIDE 0.05% CREAM (60 GM TUBE) TP SCH ×2 (09:43→22:08)
[2018-03-29] MEDS: MELATONIN 5 MG TABLETS PO PRN (21:46)
[2018-03-29] MEDS: THIAMINE HCL 100 MG TABLET (FP) PO SCH (21:46)
[2018-03-29] MEDS: diphenhydrAMINE HCL 50 MG CAPSULE PO PRN (21:47)
[2018-03-29] MEDS: INSULIN (LEVEMIR) 100 UNITS/ML UNITS SQ SCH (22:08)
[2018-03-30] MEDS: PRENATAL VITAMINS W/ FOLIC ACID TABLET (FP) PO SCH (10:02)
[2018-03-30] MEDS: NICOTINE 21 MG/24 HOURS TOPICAL PATCH TD SCH (10:02)
[2018-03-30] MEDS: FLUOCINONIDE 0.05% CREAM (60 GM TUBE) TP SCH ×2 (10:02→21:16)
[2018-03-30] MEDS: MELATONIN 5 MG TABLETS PO PRN (21:15)
[2018-03-30] MEDS: THIAMINE HCL 100 MG TABLET (FP) PO SCH (21:15)
[2018-03-30] MEDS: diphenhydrAMINE HCL 50 MG CAPSULE PO PRN (21:15)
[2018-03-30] MEDS: INSULIN (LEVEMIR) 100 UNITS/ML UNITS SQ SCH (21:16)
[2018-03-31] MEDS: FLUOCINONIDE 0.05% CREAM (60 GM TUBE) TP SCH ×2 (09:56→21:20)
[2018-03-31] MEDS: PRENATAL VITAMINS W/ FOLIC ACID TABLET (FP) PO SCH (09:56)
[2018-03-31] MEDS: NICOTINE 21 MG/24 HOURS TOPICAL PATCH TD SCH (09:56)
[2018-03-31] MEDS: MELATONIN 5 MG TABLETS PO PRN (21:19)
[2018-03-31] MEDS: THIAMINE HCL 100 MG TABLET (FP) PO SCH (21:19)
[2018-03-31] MEDS: diphenhydrAMINE HCL 50 MG CAPSULE PO PRN (21:20)
[2018-03-31] MEDS: INSULIN (LEVEMIR) 100 UNITS/ML UNITS SQ SCH (21:20)
[2018-04-01] MEDS: NICOTINE 21 MG/24 HOURS TOPICAL PATCH TD SCH (09:53)
[2018-04-01] MEDS: PRENATAL VITAMINS W/ FOLIC ACID TABLET (FP) PO SCH (09:53)
[2018-04-01] MEDS: FLUOCINONIDE 0.05% CREAM (60 GM TUBE) TP SCH ×2 (09:53→21:58)
[2018-04-01] MEDS: INSULIN (LEVEMIR) 100 UNITS/ML UNITS SQ SCH (21:37)
[2018-04-01] MEDS: THIAMINE HCL 100 MG TABLET (FP) PO SCH (21:38)
[2018-04-01] MEDS: MELATONIN 5 MG TABLETS PO PRN (21:38)
[2018-04-01] MEDS: diphenhydrAMINE HCL 50 MG CAPSULE PO PRN (21:39)
[2018-04-01] MEDS ORDERED: INSULIN (NOVOLOG) ASPART 100 UNITS/ML 10ML VIAL ONE (22:14)
[2018-04-02] MEDS: PRENATAL VITAMINS W/ FOLIC ACID TABLET (FP) PO SCH (10:32)
[2018-04-02] MEDS: NICOTINE 21 MG/24 HOURS TOPICAL PATCH TD SCH (10:32)
[2018-04-02] MEDS: FLUOCINONIDE 0.05% CREAM (60 GM TUBE) TP SCH ×2 (10:32→21:21)
[2018-04-02] MEDS: THIAMINE HCL 100 MG TABLET (FP) PO SCH (21:20)
[2018-04-02] MEDS: MELATONIN 5 MG TABLETS PO PRN (21:20)
[2018-04-02] MEDS: diphenhydrAMINE HCL 50 MG CAPSULE PO PRN (21:20)
[2018-04-02] MEDS: INSULIN (LEVEMIR) 100 UNITS/ML UNITS SQ SCH (21:21)
[2018-04-03] MEDS: FLUOCINONIDE 0.05% CREAM (60 GM TUBE) TP SCH ×2 (10:21→22:23)
[2018-04-03] MEDS: NICOTINE 21 MG/24 HOURS TOPICAL PATCH TD SCH (10:21)
[2018-04-03] MEDS: PRENATAL VITAMINS W/ FOLIC ACID TABLET (FP) PO SCH (10:21)
[2018-04-03] MEDS: THIAMINE HCL 100 MG TABLET (FP) PO SCH (22:23)
[2018-04-03] MEDS: MELATONIN 5 MG TABLETS PO PRN (22:23)
[2018-04-03] MEDS: diphenhydrAMINE HCL 50 MG CAPSULE PO PRN (22:24)
[2018-04-03] MEDS: INSULIN (LEVEMIR) 100 UNITS/ML UNITS SQ SCH (22:28)
[2018-04-03] MEDS ORDERED: INSULIN (LEVEMIR) 100 UNITS/ML UNITS SQ ONE (22:39)
[2018-04-04] MEDS: NICOTINE 21 MG/24 HOURS TOPICAL PATCH TD SCH (09:51)
[2018-04-04] MEDS: FLUOCINONIDE 0.05% CREAM (60 GM TUBE) TP SCH ×2 (09:51→21:58)
[2018-04-04] MEDS: PRENATAL VITAMINS W/ FOLIC ACID TABLET (FP) PO SCH (09:51)
[2018-04-04] MEDS: MELATONIN 5 MG TABLETS PO PRN (21:56)
[2018-04-04] MEDS: THIAMINE HCL 100 MG TABLET (FP) PO SCH (21:56)
[2018-04-04] MEDS: diphenhydrAMINE HCL 50 MG CAPSULE PO PRN (21:56)
[2018-04-04] MEDS: INSULIN (LEVEMIR) 100 UNITS/ML UNITS SQ SCH (21:56)
[2018-04-05 06:44] VITALS: TEMP 97.6
[2018-04-05] MEDS: NICOTINE 21 MG/24 HOURS TOPICAL PATCH TD SCH (09:31)
[2018-04-05] MEDS: FLUOCINONIDE 0.05% CREAM (60 GM TUBE) TP SCH ×2 (09:31→21:12)
[2018-04-05] MEDS: PRENATAL VITAMINS W/ FOLIC ACID TABLET (FP) PO SCH (09:31)
[2018-04-05] MEDS: MELATONIN 5 MG TABLETS PO PRN (21:11)
[2018-04-05] MEDS: THIAMINE HCL 100 MG TABLET (FP) PO SCH (21:11)
[2018-04-05] MEDS: INSULIN (LEVEMIR) 100 UNITS/ML UNITS SQ SCH (21:11)
[2018-04-05] MEDS: diphenhydrAMINE HCL 50 MG CAPSULE PO PRN (21:11)
--- NOTE | 2018-04-06 07:06 | PN ---
Psychiatric Progress Note Vital Signs: Vital Signs Period Temp Pulse Resp BP Sys/Henriquez Pulse Ox Last 24 Hr 16- Date of Session: 04/06/18 Chief Complaint:: Discharge Note HPI: Patient addressing Alcohol and Cocaine Dependence comorbid with Bipolar Disorder, Nicotine Dependence and Substance-Induced Anxiety Disorder ROS: Asthma, Hep C, Type 2 DM, Lumbar herniated disc Current Medications: Active Medications Generic Name Dose Route Start Last Admin Trade Name Freq PRN Reason Stop Dose Admin Acetaminophen 650 mg 03/22/18 16:32 Tylenol - PO Q4H PRN FEVER Al Hydroxide/Mg Hydroxide 30 ml 03/22/18 16:32 Mylanta Oral Suspension - PO Q6H PRN DYSPEPSIA Albuterol Sulfate 2 puff 03/22/18 16:33 Ventolin Hfa Inhaler - IH Q4H PRN SHORT OF BREATH/WHEEZING Diphenhydramine HCl 50 mg 03/23/18 11:26 04/05/18 21:11 Benadryl - PO 50 mg HS PRN Administration INSOMNIA Eucalyptus/Menthol/Phenol/Sorbitol 1 each 03/22/18 16:32 Cepastat Lozenge - MM Q4H PRN SORE THROAT Fluocinonide 1 applic 03/27/18 22:00 04/05/18 21:12 Lidex 0.05% Cream - TP 1 applic BID REBECA Administration Guaifenesin 10 ml 03/22/18 16:32 Robitussin Dm - PO Q6H PRN COUGH Hydroxyzine Pamoate 50 mg 03/22/18 16:32 Vistaril - PO Q4H PRN AGITATION Ibuprofen 400 mg 03/22/18 16:32 Motrin - PO Q6H PRN Pain Level 4-6 Insulin Detemir 25 units 03/22/18 22:00 04/05/18 21:11 Levemir Vial SQ 25 units HS REBECA Administration Loperamide HCl 4 mg 03/22/18 16:32 Imodium - PO Q6H PRN DIARRHEA Magnesium Citrate 300 ml 03/22/18 16:32 Citroma - PO Q48H PRN CONSTIPATION Magnesium Hydroxide 30 ml 03/22/18 16:32 Milk Of Magnesia - PO DAILY PRN CONSTIPATION Melatonin 5 mg 03/22/18 22:00 04/05/18 21:11 Melatonin PO 5 mg HS PRN Administration INSOMNIA Nicotine 21 mg 03/23/18 10:00 04/05/18 09:31 Nicoderm Patch - TD Not Given DAILY REBECA Nicotine Polacrilex 2 mg 03/22/18 16:32 Nicorette Gum - BUC Q2H PRN NICOTINE REPLACEMENT RX Multivit/Folic Acid/Iron 1 tab 03/23/18 10:00 04/05/18 09:31 Vitamins (Sj[facility]) - PO 1 tab DAILY REBECA Administration Pseudoephedrine/Triprolidine 1 combo 03/22/18 16:32 Actifed - PO TID PRN NASAL CONGESTION Thiamine HCl 100 mg 03/22/18 22:00 04/05/18 21:11 Vitamin B1 - PO 100 mg HS REBECA Administration Current Side Effect: No Lab tests ordered: Yes Lab tests reviewed: Yes Provider note:: Patient has completed this program today. He has met his treatment goals and will continue to address his issues in outpatient treatment at [facility]. Told production underwriter that from his participation in this program, he has learned to identify his triggers and better ways to deal with them. He is stable for discharge today Total face to face time:: 35 Mental Status Exam - Mental Status Exam Alert and Oriented to: Time, Place, Person Cognitive Function: Fair Patient Appearance: Well Groomed Mood: Hopeful, Euthymic Affect: Appropriate Patient Behavior: Cooperative Speech Pattern: Clear Voice Loudness: Normal Thought Process: Intact, Goal Oriented Thought Disorder: Not Present Hallucinations: Denies Suicidal Ideation: Denies Homicidal Ideation: Denies Insight/Judgement: Fair Sleep: Fair Appetite: Good Muscle strength/Tone: Normal Gait/Station: Normal Psychiatric Treatment Plan - Problem List (7) Asthma Qualifiers: Asthma severity: mild Asthma persistence: intermittent Asthma complication type: uncomplicated Qualified Code(s): J45.20 - Mild intermittent asthma, uncomplicated (8) Eczema Qualifiers: Eczema type: flexural Qualified Code(s): L20.82 - Flexural eczema (9) Hepatitis C Qualifiers: Viral hepatitis chronicity: chronic (11) Nicotine dependence Initial treatment plan: Patient is discharged today and referred to [facility] for outpatient treatment
[2018-04-06] MEDS ORDERED: PT OWN MED DRAWER 7, Y5N ONE (08:12)
[2018-04-06 08:14] VITALS: BP 141/75; PULSE 72
== END 2018-04-06 08:35 | disposition home or self-care (01) | DRG 772 ==
LOC: YASAS 12:05 → Y3W 12:08
PROVIDERS: ADMIT Psychiatry & Neurology Psychiatry; ATTEND Psychiatry & Neurology Psychiatry
PROC: HZ42ZZZ Group Counseling for Substance Abuse Treatment, Cognitive-Behavioral (ICD-10-PCS; principal; 2018-03-22)
DX: F10.20 Alcohol dependence, uncomplicated (principal); F14.20 Cocaine dependence, uncomplicated; F17.210 Nicotine dependence, cigarettes, uncomplicated; F31.9 Bipolar disorder, unspecified; F19.280 Other psychoactive substance dependence with psychoactive substance-induced anxiety disorder; F19.282 Other psychoactive substance dependence with psychoactive substance-induced sleep disorder; J45.20 Mild intermittent asthma, uncomplicated; E11.65 Type 2 diabetes mellitus with hyperglycemia; Z79.4 Long term (current) use of insulin; B18.2 Chronic viral hepatitis C; L20.82 Flexural eczema; M51.26 Other intervertebral disc displacement, lumbar region; Z59.0 Homelessness
CPT/HCPCS: 82962